=== PATIENT | female | born 1980 | race Caucasian/White ===

== ENCOUNTER 2024-09-29 12:32 | Emergency (ER) | payer SELFPAY ==
[~2024-09-29] VITALS: Ht 162.6 cm; Wt 87.0 kg
[2024-09-29 12:38] VITALS: BP 112/64; PULSE 71; RESP 16; TEMP 36.9; O2SAT 97
[2024-09-29] MEDS ORDERED: IBUP-2029 MT (14:26)
[2024-09-29] MEDS ORDERED: METH-653 MT (14:26)
[2024-09-29] MEDS: KETOROLAC 30MG/ML VIAL IM ONE (14:55)
[2024-09-29] MEDS: METHOCARBAMOL 500MG TABLET PO ONE (14:56)
== END 2024-09-29 15:17 | disposition home or self-care (01) ==
LOC: ER 12:32
DX: S13.4XXA Sprain of ligaments of cervical spine, initial encounter (principal); S33.5XXA Sprain of ligaments of lumbar spine, initial encounter; Z79.899 Other long term (current) drug therapy; V43.52XA Car driver injured in collision with other type car in traffic accident, initial encounter; Y93.89 Activity, other specified; Y92.89 Other specified places as the place of occurrence of the external cause; Y99.8 Other external cause status
CPT/HCPCS: 96372; 99283; J1885; Z7610

== ENCOUNTER 2024-11-29 16:23 | Emergency (ER) | payer SELFPAY ==
[~2024-11-29] VITALS: Ht 160 cm; Wt 78.0 kg
[~2024-11-29 16:23] MED LIST: IBUP-2029 MT; METH-653 MT
[2024-11-29 16:24] VITALS: O2SAT 97
[2024-11-29 16:29] VITALS: BP 114/66; PULSE 72; RESP 18; TEMP 36.7; O2SAT 98
[2024-11-29] MEDS ORDERED: CYCL10TA21 MT (21:22)
[2024-11-29] MEDS ORDERED: IBUP-2029 MT (21:22)
[2024-11-29] MEDS: KETOROLAC 30MG/ML VIAL IM ONE (21:24)
== END 2024-11-29 21:46 | disposition home or self-care (01) ==
LOC: ER 16:23
DX: M54.6 Pain in thoracic spine (principal); Z79.899 Other long term (current) drug therapy; Z68.30 Body mass index [BMI] 30.0-30.9, adult
CPT/HCPCS: 72070; 96372; 99283; J1885; Z7610